=== PATIENT | female | born 2000 | race Caucasian/White ===

== ENCOUNTER 2025-11-23 22:43 | Emergency (ER) | payer MEDICAID ==
[~2025-11-23] VITALS: Ht 165.1 cm; Wt 83.0 kg
[2025-11-23 22:49] VITALS: BP 141/94; PULSE 93; RESP 16; TEMP 37.1; O2SAT 100
== END 2025-11-23 23:37 | disposition home or self-care (01) ==
LOC: ER 22:43
DX: T74.21XA Adult sexual abuse, confirmed, initial encounter (principal); Y92.89 Other specified places as the place of occurrence of the external cause
CPT/HCPCS: 99284